=== PATIENT | female | born 1990 | race Caucasian/White ===

== ENCOUNTER 2018-02-07 14:11 | Outpatient (REF) | payer MEDICAID, SELFPAY ==
--- NOTE | 2018-02-07 14:00 | PAPFT_PTH ---
PATIENT: Huong Arriaga LOC: [facility] U#:[id number] AGE/SX: 27/F ROOM: RE02/07/[address]: BOBBY Le : 1990 BED: DIS: 02/07/2018 SPEC #: [id number] RECD: 02/07/18 17:45 STATUS: CHERELLE REQ #: [id number] LAUREN: 02/07/18 14:[address]: Yarely Paez DEPT: [facility] Cytology RECD BY: Rebeka Mac ENTERED: 02/07/18 17:46 SP TYPE: PAPFT OTHR DR: Luz Marina Hwang Tissues: 1 - CX/ENDOCX FOR PAP SMEARS Procedures: PAP THIN PREP/[facility] Screening Comments: [id number]
[2018-02-08 16:36] LABS: Chlamydia Result Negative; GC Result Negative; Specimen Description CERVIX
== END 2018-02-07 14:31 ==
LOC: LBN 14:11
PROVIDERS: PCP Nurse Practitioner Family; Visit Provider Nurse Practitioner Family
DX: Z11.3 Encounter for screening for infections with a predominantly sexual mode of transmission (principal); Z12.4 Encounter for screening for malignant neoplasm of cervix
CPT/HCPCS: 87491; 87591; 88142

== ENCOUNTER 2018-03-04 16:20 | Outpatient (REF) | payer MEDICAID, SELFPAY ==
--- NOTE | 2018-03-04 13:45 | CER_PTH ---
PATIENT: Huong Arriaga LOC: [facility] U#:[id number] AGE/SX: 27/F ROOM: RE03/04/[address]: BOBBY Le : 1990 BED: DIS: 03/04/2018 SPEC #: [id number] RECD: 03/04/18 17:35 STATUS: CHERELLE REQ #: [id number] LAUREN: 03/04/18 13:[address]: Yarely Paez DEPT: Surgical Specimen RECD BY: Rebeka Mac ENTERED: 03/04/18 17:36 SP TYPE: CER PATIENCE DR: Luz Marina Hwang Tissues: 1 - ENDOCERVICAL BX/CURRETTE 2 - CERVICAL BIOPSY Procedures: GROSS AND MICRO LEVEL 4 Comments: [id number]
== END 2018-03-04 16:40 ==
LOC: LBN 16:20
PROVIDERS: PCP Nurse Practitioner Family; Visit Provider Nurse Practitioner Family
DX: N72 Inflammatory disease of cervix uteri (principal); R87.610 Atypical squamous cells of undetermined significance on cytologic smear of cervix (ASC-US)
CPT/HCPCS: 88305

== ENCOUNTER 2018-08-04 16:42 | Emergency (ER) | payer MEDICAID, SELFPAY ==
[2018-08-04 16:54] VITALS: BP 110/57; PULSE 83; RESP 16; TEMP 36.7; O2SAT 98
--- NOTE | 2018-08-04 17:57 | NUR.NOTE ---
Nursing Note: Patient stated to Access that she was leaving without being seen. Stated she was going to get OTC meds for her problem. Cristina Marquez.
--- NOTE | 2018-08-04 18:27 | NUR.NOTE ---
left without being seen.Nursing Note:
== END 2018-08-04 17:54 ==
LOC: ER 16:55
PROVIDERS: PCP Nurse Practitioner Family
DX: Z53.21 Procedure and treatment not carried out due to patient leaving prior to being seen by health care provider (principal)

== ENCOUNTER 2018-08-06 12:19 | Emergency (ER) | payer MEDICAID, SELFPAY ==
[2018-08-06 12:21] VITALS: BP 113/50; PULSE 70; RESP 16; TEMP 36.6; O2SAT 100
--- NOTE | 2018-08-06 12:35 | ED.GENADUL_ITS ---
Discharge Plan Disposition Patient Disposition: HOME Condition: Improving Discharge Details Chief Complaint: RashLesion Clinical Impression: Acute urticaria Primary Care Provider: Toni Webster ED Provider: Tylor Boyce Home Meds and New Rx's Prescriptions: New prednisone 20 mg tablet 40 mg PO DAILY 5 Days Qty: 10 RF: 0 ranitidine HCl 150 mg capsule 150 mg PO BID Qty: 14 RF: 0 Continued Xulane 150-35 mcg/24 hr patch weekly 1 patch TD QWEEK Qty: 9 RF: 2 betamethasone dipropionate 0.05 % Cream 1 applic TOPICAL BID RF: 0 Discharge Instructions Instructions: Urticaria (ED) Additional Instructions: Take prednisone as prescribed for 5 days. I have enclosed a prescription for ranitidine which should take twice daily for 1 week, this is available [id number]. Continue all regular medications. Return for worsening rash, difficulty breathing, or any other acute concerns. Medical Decision Making 27-year-old female with diffuse, blanching, urticarial rash without signs of oth er systemic involvement. No clear inciting antigen. Most consistent with hives. Discussed with her treatment including brief burst of steroids and twice daily Zantac for a week. She understands homecare as well as follow-up and return precautions. She is stable for discharge to home at this time. HPI General Mode of arrival: ambulatory . Date/Time Provider Initiated Documentation: 08/06/18 12:28 . Limitations to Documentation: no limitations . Information obtained by: patient . History of Present Illness 27 year old F presents to the emergency department with the chief complaint of Itching rash for 3 days, described as moderate, Quality is described as constant, and is localized to the back, abdomen, upper extremity and lower extremity. Patient started experiencing this day(s) and it has been constant. No relieving factors improve symptom(s), No exacerbating factors reported . Patient notes no other symptoms.. Patient did receive the following treat ments prior to arrival, other (Some improvement with topical steroid cream) Related Data Home Medications Medication Instructions Recorded Confirmed norelgestromin 150 mcg-e.estradiol 1 patch TD QWEEK #9 each 05/10/18 35 mcg/24 hr weekly transderm patch betamethasone dipropionate 1 applic TOPICAL BID 08/06/18 08/06/18 prednisone 40 mg PO DAILY 5 Days #10 tab 08/06/18 ranitidine HCl 150 mg PO BID #14 cap 08/06/18 Previous Rx's Medication Instructions Recorded norelgestromin 150 mcg-e.estradiol 1 patch TD QWEEK #9 each 05/10/18 35 mcg/24 hr weekly transderm patch prednisone 40 mg PO DAILY 5 Days #10 tab 08/06/18 ranitidine HCl 150 mg PO BID #14 cap 08/06/18 Allergies Allergy/AdvReac Type Severity Reaction Status Date / Time phenytoin sodium Allergy Intermediate Hives Verified 08/06/18 12:26 [From Dilantin] phenytoin sodium extended Allergy Intermediate Hives Verified 08/06/18 12:26 [From Dilantin] General Stated Complaint: RashLesion EDEN: 4 Review of Systems Review of Systems 6 systems reviewed and otherwise negative [facility] Medical History Scoliosis (Acute) Surgical History Repair of inguinal hernia Family History Mother No problems noted. Social History Smoking/Tobacco Use Status: Current every day Tobacco Type: cigarettes Smoking cigarettes per day: 10 Alcohol Intake: never Substance use type: does not use Do you feel safe at home: Yes Do you feel safe in your relationship?: Yes History History 2 Para 1 Hx # Term Pregnancies Multiple births Hx # Pregnancies Ectopic pregnancies AB induced Hx Number of Living Children AB spontaneous Exam Narrative Exam Narrative: GEN: awake, alert, oriented 3. Pleasant, well groomed, interactive. HEAD: Normocephalic, atraumatic ENT: Mucous membranes moist, oropharynx unremarkable, External ear exam unremarkable EYES: PERRL, EOMI NECK: Full ROM, no EDGAR, no menigismus CHEST/RESP: Nontender, clear to auscultation bilateral, no wheeze/rhonchi/rales CARDIOVASCULAR: RRR, no murmur, rub ramona. 2+ Rad pulse bilateral ABDOMEN: Soft, nontender, no mass. Skin exam: Blanching, raised erythematous wheals on extremities and abdomen EXT: Full ROM, no edema Neuro: Grossly normal neurologic exam, conversant, interactive. Psych: Speech fluent, thoughts congruent, affect normal Course Vital Signs Temperature 36.6 C 08/06/18 12:21 Pulse 70 08/06/18 12:21 Respiratory Rate 16 08/06/18 12:21 Blood Pressure 113/50 L 08/06/18 12:21 Pulse Oximetry 100 08/06/18 12:21 Temperature 36.6 C 08/06/18 12:21 Temperature Source Skin 08/06/18 12:21 Pulse 70 08/06/18 12:21 Respiratory Rate 16 08/06/18 12:21 Respiratory Effort Non-Labored 08/06/18 12:24 Blood Pressure 113/50 L 08/06/18 12:21 Blood Pressure Position Sitting 08/06/18 12:21 Pulse Oximetry 100 08/06/18 12:21 Oxygen Delivery Method Room Air 08/06/18 12:21 Oxygen Flow Rate 0 08/06/18 12:21 Pain Level 0 08/06/18 12:21
[2018-08-06 12:40] VITALS: BP 113/50; PULSE 70; RESP 16; TEMP 36.6; O2SAT 100
== END 2018-08-06 12:40 | disposition home or self-care (01) ==
PROVIDERS: Emergency Provider Emergency Medicine; PCP Specialist/Technologist Athletic Trainer
DX: L50.9 Urticaria, unspecified (principal)
CPT/HCPCS: 99283

== ENCOUNTER 2018-09-25 07:52 | Emergency (ER) | payer MEDICAID, SELFPAY ==
[2018-09-25 07:55] VITALS: BP 100/60; PULSE 82; RESP 12; TEMP 36.7; O2SAT 98
--- NOTE | 2018-09-25 08:09 | W.ED.GENAD ---
Discharge Plan Disposition Patient Disposition: HOME Condition: Fair Discharge Details Chief Complaint: Sorethroat Clinical Impression: URI (upper respiratory infection), Acute pharyngitis Primary Care Provider: Toni Webster ED Provider: Rhina Kohler Home Meds and New Rx's Prescriptions: Continued betamethasone dipropionate 0.05 % Cream 1 applic TOPICAL BID RF: 0 Discharge Instructions Instructions: Pharyngitis (ED), Upper Respiratory Infection (ED) Additional Instructions: Encourage hydration. Tylenol and ibuprofen as needed for discomfort. You may use lozenges and honey to help with sore throat. If you develop fever/chills, increased pain, inability stay hydrated or other new/worsening symptoms please seek care urgently once again. Otherwise, please follow-up with primary care if not improved over the next week. Referrals: Toni Webster [Primary Care Provider] - Medical Decision Making Patient is a 28 year old female presenting today with cc of sore throat that began yesterday. Also endorses a mild nonproductive cough. Afebrile. No GI upset. No ear pain, nasal congestion. Patient nontoxic appearing. Has mild erythema to posterior oropharynx. Rapid strep negative. Uvula is midline. No swelling of the tongue, no trismus. Voice is normal. Advised is likely viral etiology. Encourage hydration. Advised Tylenol and ibuprofen as needed for discomfort. We discussed new/worsening symptoms that should prompt urgent evaluation once again. Advise follow-up with primary care if not improving in 1-2 week. All other questions and concerns were addressed she is in agreement with this plan. HPI General Mode of arrival: ambulatory. Date/Time Provider Initiated Documentation: 09/25/18 08:09. Limitations to Documentation: no limitations. Information obtained by: patient and RN notes reviewed. History of Present Illness 28 year old F presents to the emergency department with the chief complaint of sore throat, described as moderate, with intensity rated at 6. Quality is described as burning, Patient reports no radiation. Patient started experiencing this day(s) (1) and it has been constant. No relieving factors improve symptom(s), No exacerbating factors reported . Patient notes cough (nonproductive); denies chest pain, fever/chills, headaches, loss of appetite, nausea/vomiting, rash and shortness of breath. Patient did receive the following treatments prior to arrival, none Related Data Home Medications Medication Instructions Recorded Confirmed betamethasone dipropionate 1 applic TOPICAL BID 08/06/18 09/25/18 Allergies Allergy/AdvReac Type Severity Reaction Status Date / Time phenytoin sodium Allergy Intermediate Hives Verified 09/25/18 07:58 [From Dilantin] phenytoin sodium extended Allergy Intermediate Hives Verified 09/25/18 07:58 [From Dilantin] General Stated Complaint: Sorethroat EDEN: 4 Review of Systems Constitutional Reports as per HPI, Denies chills, Denies fever(s), Denies headache(s) and Denies poor appetite Eyes Reports as per HPI, Denies eye discharge and Denies irritation ENT Reports as per HPI, Denies ear discharge, Denies otalgia, Denies headache(s), Denies nasal congestion, Denies nasal discharge, Denies sinus pain, Denies sinus pressure, Reports sore throat and Denies throat swelling Cardiovascular Reports as per HPI, Denies chest pain and Denies dyspnea Respiratory Reports as per HPI, Denies chest congestion, Reports cough, Denies hemoptysis, Denies excessive phlegm production and Denies dyspnea Gastrointestinal Reports as per HPI, Denies abdominal pain, Denies change in bowel habits, Denies nausea and Denies vomiting Integumentary/Breasts Reports as per HPI and Denies rash Neurologic Reports as per HPI and Denies headache(s) Allergic/Immunologic Denies throat swelling [facility] Medical History Scoliosis (Acute) Surgical History Repair of inguinal hernia Social History Smoking/Tobacco Use Status: Current every day Tobacco Type: cigarettes Alcohol Intake: never Substance use type: does not use Do you feel safe at home: Yes Do you feel safe in your relationship?: Yes History History 2 Para 1 Hx # Term Pregnancies Multiple births Hx # Pregnancies Ectopic pregnancies AB induced Hx Number of Living Children AB spontaneous Exam Const General: cooperative, healthy appearing, comfortable, no acute distress, well developed and well groomed Nutritional Appearance: average body habitus and well nourished Orientation: alert and awake HENFL Head: normal to inspection, normocephalic and atraumatic Ears: hearing grossly normal bilaterally, external ears normal and TM's normal bilaterally General nose exam: external nose normal and nares normal Face and sinus: normal facial exam, sinuses nontender and face symmetric Mouth: oral mucosae normal, lip normal, tongue normal, oropharynx normal and moist mucous membranes Teeth and gingiva: dentition normal Throat: posterior oropharynx abnormal (erythematous), tonsils normal and uvula midline Eyes General: appearance normal, both eyes and all related structures Neck Neck: normal visual inspection, full ROM, no lymphadenopathy and no meningeal signs Resp Effort & Inspection: normal respiratory effort, able to speak in complete sentences and no respiratory distress Auscultation: clear to auscultation bilaterally, no rales, no rhonchi and no wheezes Cardio Rate: regular rate Rhythm: regular rhythm Heart Sounds: S1 normal and S2 normal Skin General skin exam: no rashes or lesions noted Neuro General: alert and awake Cognition: normal cognition Speech: speech normal Gait: normal gait Psych Appearance: grossly normal and well kempt Mental Status: mental status grossly normal Speech and Movement: speech and movement normal Course Vital Signs Temperature 36.7 C 09/25/18 07:55 Pulse 82 09/25/18 07:55 Respiratory Rate 12 09/25/18 07:55 Blood Pressure 100/60 09/25/18 07:55 Pulse Oximetry 98 09/25/18 07:55 Temperature 36.7 C 09/25/18 07:55 Temperature Source Temporal Artery Scan 09/25/18 07:55 Pulse 82 09/25/18 07:55 Respiratory Rate 12 09/25/18 07:55 Respiratory Effort Non-Labored 09/25/18 07:57 Blood Pressure 100/60 09/25/18 07:55 Blood Pressure Position Sitting 09/25/18 07:55 Pulse Oximetry 98 09/25/18 07:55 Oxygen Delivery Method Room Air 09/25/18 07:55 Oxygen Flow Rate 0 09/25/18 07:55 Pain Level 6 09/25/18 07:55 Lab/Test Results Lab/Test Results: POC Strep Test-MELISSA(Rapid) Start: 09/25/18 08:04 Freq: .Rapid Strep Test Status: Active Protocol: Document 09/25/18 08:09 SRIKANTH (Rec: 09/25/18 08:09 SRIKANTH [email or web address]) Strep test-MELISSA(Rapid)-POC POC-Strep test-MELISSA (Rapid) Negative POC-Strep test-MELISSA (Rapid) Negative
--- NOTE | 2018-09-25 08:18 | ED.GENADUL_ITS ---
Discharge Plan Disposition Patient Disposition: HOME Condition: Fair Discharge Details Chief Complaint: Sorethroat Clinical Impression: URI (upper respiratory infection), Acute pharyngitis Primary Care Provider: Toni Webster ED Provider: Rhina Kohler Home Meds and New Rx's Prescriptions: Continued betamethasone dipropionate 0.05 % Cream 1 applic TOPICAL BID RF: 0 Discharge Instructions Instructions: Pharyngitis (ED), Upper Respiratory Infection (ED) Additional Instructions: Encourage hydration. Tylenol and ibuprofen as needed for discomfort. You may use lozenges and honey to help with sore throat. If you develop fever/chills, increased pain, inability stay hydrated or other new/worsening symptoms please seek care urgently once again. Otherwise, please follow-up with primary care if not improved over the next week. Referrals: Toni Webster [Primary Care Provider] - Medical Decision Making Patient is a 28 year old female presenting today with cc of sore throat that began yesterday. Also endorses a mild nonproductive cough. Afebrile. No GI upset. No ear pain, nasal congestion. Patient nontoxic appearing. Has mild erythema to posterior oropharynx. Rapid strep negative. Uvula is midline. No swelling of the tongue, no trismus. Voice is normal. Advised is likely viral etiology. Encourage hydration. Advised Tylenol and ibuprofen as needed for discomfort. We discussed new/worsening symptoms that should prompt urgent evaluation once again. Advise follow-up with primary care if not improving in 1-2 week. All other questions and concerns were addressed she is in agreement with this plan. HPI General Mode of arrival: ambulatory . Date/Time Provider Initiated Documentation: 09/25/18 08:09 . Limitations to Documentation: no limitations . Information obtained by: patient and RN notes reviewed . History of Present Illness 28 year old F presents to the emergency department with the chief complaint of sore throat, described as moderate, with intensity rated at 6. Quality is described as burning, Patient reports no radiation. Patient started experiencing this day(s) (1) and it has been constant. No relieving factors improve symptom(s), No exacerbating factors reported . Patient notes cough (nonproductive); denies chest pain, fever/chills, headaches, loss of appetite, nausea/vomiting, rash and shortness of breath. Patient did receive the following treatments prior to arrival, none Related Data Home Medications Medication Instructions Recorded Confirmed betamethasone dipropionate 1 applic TOPICAL BID 08/06/18 09/25/18 Allergies Allergy/AdvReac Type Severity Reaction Status Date / Time phenytoin sodium Allergy Intermediate Hives Verified 09/25/18 07:58 [From Dilantin] phenytoin sodium extended Allergy Intermediate Hives Verified 09/25/18 07:58 [From Dilantin] General Stated Complaint: Sorethroat EDEN: 4 Review of Systems Constitutional Reports as per HPI, Denies chills, Denies fever(s), Denies headache(s) and Denies poor appetite Eyes Reports as per HPI, Denies eye discharge and Denies irritation ENT Reports as per HPI, Denies ear discharge, Denies otalgia, Denies headache(s), Denies nasal congestion, Denies nasal discharge, Denies sinus pain, Denies sinus pressure, Reports sore throat and Denies throat swelling Cardiovascular Reports as per HPI, Denies chest pain and Denies dyspnea Respiratory Reports as per HPI, Denies chest congestion, Reports cough, Denies hemoptysis, Denies excessive phlegm production and Denies dyspnea Gastrointestinal Reports as per HPI, Denies abdominal pain, Denies change in bowel habits, Denies nausea and Denies vomiting Integumentary/Breasts Reports as per HPI and Denies rash Neurologic Reports as per HPI and Denies headache(s) Allergic/Immunologic Denies throat swelling [facility] Medical History Scoliosis (Acute) Surgical History Repair of inguinal hernia Social History Smoking/Tobacco Use Status: Current every day Tobacco Type: cigarettes Alcohol Intake: never Substance use type: does not use Do you feel safe at home: Yes Do you feel safe in your relationship?: Yes History History 2 Para 1 Hx # Term Pregnancies Multiple births Hx # Pregnancies Ectopic pregnancies AB induced Hx Number of Living Children AB spontaneous Exam Const General: cooperative, healthy appearing, comfortable, no acute distress, well developed and well groomed Nutritional Appearance: average body habitus and well nourished Orientation: alert and awake HENCO Head: normal to inspection, normocephalic and atraumatic Ears: hearing grossly normal bilaterally, external ears normal and TM's normal bilaterally General nose exam: external nose normal and nares normal Face and sinus: normal facial exam, sinuses nontender and face symmetric Mouth: oral mucosae normal, lip normal, tongue normal, oropharynx normal and moist mucous membranes Teeth and gingiva: dentition normal Throat: posterior oropharynx abnormal (erythematous), tonsils normal and uvula midline Eyes General: appearance normal, both eyes and all related structures Neck Neck: normal visual inspection, full ROM, no lymphadenopathy and no meningeal signs Resp Effort & Inspection: normal respiratory effort, able to speak in complete sentences and no respiratory distress Auscultation: clear to auscultation bilaterally, no rales, no rhonchi and no wheezes Cardio Rate: regular rate Rhythm: regular rhythm Heart Sounds: S1 normal and S2 normal Skin General skin exam: no rashes or lesions noted Neuro General: alert and awake Cognition: normal cognition Speech: speech normal Gait: normal gait Psych Appearance: grossly normal and well kempt Mental Status: mental status grossly normal Speech and Movement: speech and movement normal Course Vital Signs Temperature 36.7 C 09/25/18 07:55 Pulse 82 09/25/18 07:55 Respiratory Rate 12 09/25/18 07:55 Blood Pressure 100/60 09/25/18 07:55 Pulse Oximetry 98 09/25/18 07:55 Temperature 36.7 C 09/25/18 07:55 Temperature Source Temporal Artery Scan 09/25/18 07:55 Pulse 82 09/25/18 07:55 Respiratory Rate 12 09/25/18 07:55 Respiratory Effort Non-Labored 09/25/18 07:57 Blood Pressure 100/60 09/25/18 07:55 Blood Pressure Position Sitting 09/25/18 07:55 Pulse Oximetry 98 09/25/18 07:55 Oxygen Delivery Method Room Air 09/25/18 07:55 Oxygen Flow Rate 0 09/25/18 07:55 Pain Level 6 09/25/18 07:55 Lab/Test Results Lab/Test Results: POC Strep Test-MELISSA(Rapid) Start: 09/25/18 08:04 Freq: .Rapid Strep Test Status: Active Protocol: Document 09/25/18 08:09 SRIKANTH (Rec: 09/25/18 08:09 SRIKANTH [email or web address]) Strep test-MELISSA(Rapid)-POC POC-Strep test-MELISSA (Rapid) Negative POC-Strep test-MELISSA (Rapid) Negative
== END 2018-09-25 08:22 | disposition home or self-care (01) ==
PROVIDERS: Emergency Provider Physician Assistant; PCP Specialist/Technologist Athletic Trainer
DX: J06.9 Acute upper respiratory infection, unspecified (principal); J02.9 Acute pharyngitis, unspecified
CPT/HCPCS: 87880; 99283; 87081

== ENCOUNTER 2018-11-08 11:55 | Outpatient (REF) | payer MEDICAID, SELFPAY ==
--- NOTE | 2018-11-08 12:45 | SKI_PTH ---
PATIENT: Huong Arriaga LOC: [facility] U#:[id number] AGE/SX: 28/F ROOM: RE11/08/[address]: Toni Webster : 1990 BED: DIS: 11/08/2018 SPEC #: [id number] RECD: 11/11/18 12:40 STATUS: CHERELLE RERitchie #: [id number] LAUREN: 11/08/18 12:[address]: Toni Webster DEPT: Surgical Specimen RECD BY: Rebeka Mac Tissues: 1 - SKIN BIOPSY(SHAVE/PUNCH) Procedures: SKIN LEVEL 4 Comments: [id number]
== END 2018-11-08 12:15 ==
LOC: NCHCN 11:55
PROVIDERS: PCP Specialist/Technologist Athletic Trainer; Visit Provider Specialist/Technologist Athletic Trainer
DX: L30.8 Other specified dermatitis (principal); R21 Rash and other nonspecific skin eruption
CPT/HCPCS: 88305

== ENCOUNTER 2019-05-06 14:52 | Outpatient (REF) | payer MEDICAID, SELFPAY ==
--- NOTE | 2019-05-06 14:00 | PAPFT_PTH ---
PATIENT: Huong Arriaga LOC: [facility] U#:[id number] AGE/SX: 28/F ROOM: RE05/06/[address]: BOBBY Le : 1990 BED: DIS: 05/06/2019 SPEC #: [id number] RECD: 05/06/19 17:46 STATUS: CHERELLE RERitchie #: [id number] LAUREN: 05/06/19 14:[address]: Yarely Paez DEPT: [facility] Cytology RECD BY: Rebeka Mac ENTERED: 05/06/19 17:46 SP TYPE: PAPFT OTHR DR: Toni Webster Tissues: 1 - CX/ENDOCX FOR PAP SMEARS Procedures: PAP THIN PREP/[facility] Screening HPV DNA PROBE Comments: [id number]
[2019-05-07 13:37] LABS: Chlamydia Result Negative (Negative); GC Result Negative (Negative)
== END 2019-05-06 15:12 ==
LOC: LBN 14:52
PROVIDERS: PCP Specialist/Technologist Athletic Trainer; Visit Provider Nurse Practitioner Family
DX: Z11.3 Encounter for screening for infections with a predominantly sexual mode of transmission (principal); Z12.4 Encounter for screening for malignant neoplasm of cervix
CPT/HCPCS: 87491; 87591; 88142; 87624

== ENCOUNTER 2019-08-08 18:07 | Emergency (ER) | payer MEDICAID, SELFPAY ==
--- NOTE | 2019-08-08 18:00 | DI.RAD_ITS ---
EXAM: XR FOOT RT COMPLETE CLINICAL HISTORY: stepped on nail, r/o FB. TECHNIQUE: 2D digital imaging was performed. COMPARISON: No exams were available for comparison FINDINGS: BONES: No acute fracture is present. No bony destructive lesion is seen. JOINTS: No dislocation present. SOFT TISSUE: Normal. No radiopaque foreign body is identified. IMPRESSION: Unremarkable radiographs of the right foot. DATA REPOSITORY: RADIATION DOSE DELIVERED:
[2019-08-08 18:13] VITALS: BP 119/76; PULSE 97; RESP 18; TEMP 37.5; O2SAT 97
--- NOTE | 2019-08-08 18:34 | W.ED.GENAD ---
Discharge Plan Disposition Patient Disposition: HOME Condition: Good Discharge Details Chief Complaint: Orthopedic Clinical Impression: Injury by nail Primary Care Provider: Toni Webster ED Provider: Troy Lewis Home Meds and New Rx's Prescriptions: New ciprofloxacin HCl 500 mg tablet 500 mg PO BID 7 Days Qty: 14 RF: 0 Discharge Instructions Instructions: Puncture Wound (ED) Additional Instructions: At this time there does not appear to be any evidence of foreign body in your foot. Please apply antibiotic ointment to your foot twice daily. Please stay off of it to let it heal. Please take the antibiotic Cipro as directed. Of note this antibiotic can cause irritation to your tendons. If you feel any pain in your joints or your Achilles tendon please stop taking the antibiotic and avoid any vigorous activity. If you notice any worsening of your symptoms, or any new symptoms such as spreading redness, drainage, discharge vomiting, diarrhea, fever, chills, shortness of breath, chest pain, numbness, weakness, or fainting , please return immediately to the emergency department for reevaluation. Please follow up with your primary care provider as soon as possible for reassessment and reevaluation. As always, it was a pleasure participating in your medical care today. Referrals: Toni Webster [Primary Care Provider] - Medical Decision Making This is a pleasant 28-year-old female who presents today for evaluation after stepping on a nail in a fire pit. It went through her shoe sock and into her foot. Small amount of bleeding. Exam demonstrates no evidence of abnormality aside for the small puncture wound. Area was soaked, cleaned thoroughly and chlorhexidine. X-ray shows no evidence of foreign body. At this time I feel that the patient be safely discharged home. We have updated tetanus status. Because it went through her shoe sock and was from a dirty fire pit we will start her on an antibiotic Cipro. Discussed red flags which to return. Will give crutches and a postop shoe to help. I have extensively reviewed the treatment plan and discharge instructions with the patient. I have addressed all patient concerns at this time. The patient was made aware of what symptoms to monitor for that would warrant a return to the emergency department. Discussed the plan with the patient, they demonstrate verbal understanding and agreement with our assessment and plan at this time. FINDINGS: Bones/joints: Bone density is appropriate. Bony alignment is anatomic without evidence for fracture or dislocation. Soft tissues: No radiopaque foreign body is identified. IMPRESSION: No evidence for acute abnormality. COMMENTS: Preliminary interpretation is based on receipt of 4 image(s). A final report will be issued subsequently. Thank you for allowing us to participate in the care of your patient. Dictated and Authenticated by: Paige Jones MD 08/08/2019 6:40 PM Eastern Time ([place] & [place]) HPI General Date/Time Provider Initiated Documentation: 08/08/19 18:12. HPI Narrative: 28-year-old female with no significant past medical history who presents today for evaluation after stepping on a nail. Uncertain as to when her last tetanus shot was. She was walking through a fire pit when she stepped on a nail that went through her shoe, sock, and into her foot. Small amount of bleeding. Signs are pain at the site she denies any other complaints. No other modifying factors. Related Data Home Medications Medication Instructions Recorded Confirmed ciprofloxacin HCl 500 mg PO BID 7 Days #14 tab 08/08/19 Previous Rx's Medication Instructions Recorded ciprofloxacin HCl 500 mg PO BID 7 Days #14 tab 08/08/19 Allergies Allergy/AdvReac Type Severity Reaction Status Date / Time phenytoin sodium Allergy Intermediate Hives Verified 05/06/19 13:50 [From Dilantin] phenytoin sodium extended Allergy Intermediate Hives Verified 05/06/19 13:50 [From Dilantin] General Stated Complaint: Orthopedic EDEN: 3 Review of Systems All systems reviewed & are unremarkable except as noted in HPI and below PFSH Family History (Updated 05/06/19 @ 14:26 by Yarely Paez NP) Mother Hypertension Social History Smoking/Tobacco Use Status: Current every day Tobacco Type: cigarettes Quit status: considering quitting Alcohol Intake: never Substance use type: does not use Do you feel safe at home: Yes Do you feel safe in your relationship?: Yes Female Reproductive History Menstrual control method: condoms History History 2 Para 1 Hx # Term Pregnancies Multiple births Hx # Pregnancies Ectopic pregnancies AB induced Hx Number of Living Children AB spontaneous Exam Narrative Exam Narrative: 1.Const: Well-nourished, Well-developed, appearing stated age 2.Eyes: PERRL, no conjunctival injection, and symmetrical lids. 3.ENT: Atraumatic external nose and ears. Moist MM. Neck: Symmetric, trachea midline, No thyromegaly. 4.CVS: +S1/S2, No murmurs or gallops. Peripheral pulses 2+ and equal in all extremities. Brisk capillary refill in all extremities. 5.RESP: Unlabored respiratory effort. Clear to auscultation bilaterally. No wheezes rales or rhonchi 6.GI: Soft, Nontender/Nondistended, No hepatosplenomegaly. No guarding or rebound. 7.MSK: Normocephalic, Extremities w/o deformity or ttp No cyanosis or clubbing, Normal movement of all extremities, please see skin 8.Skin: Warm, Dry. No rashes or lesions. The patient's right foot demonstrates evidence of a small puncture wound in the plantar aspect of the foot, near the center. No active bleeding. No evidence of foreign body. No other abnormality. Mild pain with palpation. 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 Sensation grossly intact, no focal neurologic deficits. 10.Psych: (AAO) x3. Appropriate mood and affect Course Vital Signs Vital signs: Vital Signs Temperature 37.5 C 08/08/19 18:13 Pulse 97 H 08/08/19 18:13 Respiratory Rate 18 08/08/19 18:13 Blood Pressure 119/76 08/08/19 18:13 Pulse Oximetry 97 08/08/19 18:13 Temperature 37.5 C 08/08/19 18:13 Temperature Source Temporal Artery Scan 08/08/19 18:13 Pulse 97 H 08/08/19 18:13 Respiratory Rate 18 08/08/19 18:13 Respiratory Effort Non-Labored 08/08/19 18:17 Blood Pressure 119/76 08/08/19 18:13 Blood Pressure Position Sitting 08/08/19 18:13 Pulse Oximetry 97 08/08/19 18:13 Oxygen Delivery Method Room Air 08/08/19 18:13 Oxygen Flow Rate 0 08/08/19 18:13 Pain Level 8 08/08/19 18:13
--- NOTE | 2019-08-08 18:40 | DI.VRAD_ITS ---
PROCEDURE INFORMATION: Exam: XR Right Foot Complete Exam date and time: 08/08/2019 6:27 PM Age: 28 years old Clinical indication: Injury or trauma; Initial encounter; Puncture; Foot; Right; Foreign body involvement not specified; Patient HX: PT stepped on nail; Additional info: R/O fb TECHNIQUE: Imaging protocol: XR Right foot. Views: 3 or more views. COMPARISON: No relevant prior studies available. FINDINGS: Bones/joints: Bone density is appropriate. Bony alignment is anatomic without evidence for fracture or dislocation. Soft tissues: No radiopaque foreign body is identified. IMPRESSION: No evidence for acute abnormality. COMMENTS: Preliminary interpretation is based on receipt of 4 image(s). A final report will be issued subsequently. Dictated and Authenticated by: Paige Jones MD. Ordering:BARRON Simmons MD
[2019-08-08 18:50] VITALS: BP 119/76; PULSE 97; RESP 18; O2SAT 97
== END 2019-08-08 19:10 | disposition home or self-care (01) ==
PROVIDERS: Emergency Provider Student in an Organized Health Care Education/Training Program; PCP Nurse Practitioner Family
DX: S91.331A Puncture wound without foreign body, right foot, initial encounter (principal); W45.0XXA Nail entering through skin, initial encounter
CPT/HCPCS: 90471; 99284; 73630; 99283; E0114

== ENCOUNTER 2019-11-13 02:28 | Outpatient (CLI) | payer MEDICAID, SELFPAY ==
[2019-11-13 11:10] LABS: Abs Immature Grans 0.02 10^3/uL (0.0-0.06); Absolute Basophil Count 0.04 10^3/uL (0.0-0.2); Absolute Lymphocyte Count 2.41 10^3/uL (1.2-3.4); Absolute Monocyte Count 0.58 10^3/uL (0.1-0.8); Absolute Neutrophil Count 4.04 10^3/uL (1.2-6.7); Basophils % 0.5; Eosinophils % 2.7; HCT 40.6 % (36.0-46.0); HGB 13.5 g/dL (11.2-15.7); Immature Grans % 0.3; Lymphocytes % 33.1; MCH 31.5 pg (27.0-33.0); MCHC 33.3 % (32.0-36.0); MCV 94.6 fL (80-95); MPV 9.5 fL (8.0-11.0); Neutrophils % 55.4; Platelet Count 247 10^3/uL (130-400); RBC 4.29 10^6/uL (3.93-5.22); RDW 12.6 % (11.7-14.6); RDW-SD 43.4 fL; WBC 7.29 10^3/uL (4.4-10.8)
== END 2019-11-13 02:48 ==
PROVIDERS: PCP Nurse Practitioner Family; Visit Provider Obstetrics & Gynecology
DX: Z01.818 Encounter for other preprocedural examination (principal)
CPT/HCPCS: 36415; 86850; 86900; 86901; 85025

== ENCOUNTER 2019-11-15 07:04 | Outpatient (CLI) | payer MEDICAID, SELFPAY ==
[2019-11-16 17:28] LABS: COVID-19 RT-PCR Result NEGATIVE (Negative)
== END 2019-11-15 07:24 ==
PROVIDERS: PCP Nurse Practitioner Family; Visit Provider Obstetrics & Gynecology
DX: Z01.818 Encounter for other preprocedural examination (principal)
CPT/HCPCS: U0003

== ENCOUNTER 2019-11-19 06:07 | Day surgery (SDC) | payer MEDICAID, SELFPAY ==
[2019-11-19 06:10] VITALS: BP 109/66; PULSE 66; RESP 18; TEMP 36.5; O2SAT 96
[2019-11-19] MEDS: Lactated Ringers 1,000 ML 125 ML IV (06:37)
[2019-11-19] MEDS: Acetaminophen 500 MG TAB 1000 MG PO (06:44)
--- NOTE | 2019-11-19 08:00 | FALL_PTH ---
PATIENT: Huong Arriaga LOC: [facility] U#:[id number] AGE/SX: 29/F ROOM: RE11/19/[address]: Eliz Diaz DO : 1990 BED: DIS: 11/19/2019 SPEC #: [id number] RECD: 11/19/19 12:48 STATUS: CHERELLE REQ #: [id number] LAUREN: 11/19/19 08:[address]: Eliz Diaz DEPT: Surgical Specimen RECD BY: Rebeka Mac ENTERED: 11/19/19 12:48 SP TYPE: Fall OTHR DR: Nicolle Herring Tissues: 1 - FALLOPIAN TUBE (STERILIZATION) Procedures: GROSS AND MICRO LEVEL 2 Comments: [id number] (SAME CONTAINER)
--- NOTE | 2019-11-19 08:22 | ROE_ITS ---
Date of service: 11/19/19 Time of Service: 08:22 Operative Note Operative Note DATE OF PROCEDURE: 11/19/19 PRE-OP DIAGNOSIS: undesired fertility POST-OP DIAGNOSIS: same PROCEDURE: Laparoscopic bilateral salpingectomy SURGEON: Eliz Diaz ANESTHESIA: JENNI ESTIMATED BLOOD LOSS: 5 PATHOLOGY: other COMPLICATIONS: None Patient was transported to: PACU Patient's condition: stable Implants: None Indications: Undesired fertility Findings: Normal-appearing tubes, ovaries, uterus Procedure Description: Patient is a 29-year-old female with undesired fertility. She requested permanent sterilization. The risks, benefits, alternatives of the procedure including alternate forms of control were all explained to the patient. She understand the risk of infection, bleeding, injury to the surrounding organs, risk of anesthesia, thromboembolic events and . Full informed consent was obtained. She was taken the operating suite with an IV running where she was placed in the dorsal supine position. She had had approximately 100 cc of clear yellow urine drained by straight catheterization. General anesthesia administered after endotracheal intubation was performed. Timeout was performed. Patient had been prepped and draped in the usual sterile fashion. At this point quarter percent Marcaine with epinephrine was used to infiltrate at the umbilicus. The intra-abdominal wall was elevated and attempted varies needle placed. Could not confirm appropriate placement for pneumoperitoneum and this point the fascia was grasped with [place] clamps and incised. The blade this a millimeter sleeve and trocar were placed into the abdomen under direct visualization and pneumoperitoneum created. At this point attention was again turned to the abdomen where quarter percent Marcaine was used to infiltrate at the right and left lower quadrant trocar sites and a 5 mm incision made and under direct visualization right and left lower quadrant trocar sites placed with ease. At this point the left fallopian tube was identified elevated and cautery transected with the LigaSure device. The fallopian tube was then removed through the 10 mm port. Similar procedure was carried out on the right fallopian tube with LigaSure device for cautery and transection. The right fallopian tube was then elevated through the 10 mm sleeve and trocar. The pedicles were at this point inspected and found to be completely hemostatic. At this point the procedure was terminated. Pneumoperitoneum was released fascial incision was closed using 0 Vicryl suture in a running in a simple interrupted fashion umbilical incision was reap proximated with a single stitch of 4-0 Vicryl and right and left lower quadrant trocar sites were closed with a Steri-Strip. Patient awoke from anesthesia was and was taken recovery room in stable condition findings were normal tubes ovaries and uterus Complications: None apparent Implants: None
[2019-11-19 08:25] VITALS: BP 111/82; PULSE 82; RESP 16; TEMP 36.5; O2SAT 99
[2019-11-19 08:30] VITALS: BP 125/65; PULSE 78; RESP 14; TEMP 36.5; O2SAT 98
[2019-11-19 08:35] VITALS: BP 125/65; PULSE 78; RESP 14; TEMP 36.5; O2SAT 98
[2019-11-19 08:50] VITALS: BP 98/60; PULSE 69; RESP 16; TEMP 36.7; O2SAT 99
[2019-11-19 09:40] VITALS: BP 95/53; PULSE 55; RESP 16; TEMP 36.1; O2SAT 100
== END 2019-11-19 10:24 | disposition home or self-care (01) ==
LOC: SUR 06:08
PROVIDERS: PCP Nurse Practitioner Family; Visit Provider Obstetrics & Gynecology
PROC: (CPT 58661; principal; 2019-11-19 07:30)
DX: Z30.2 Encounter for sterilization (principal)
CPT/HCPCS: 58661; 81025; 88302; J1100; J1885; J2001; J2405; J3475

== ENCOUNTER 2020-02-05 16:40 | Emergency (ER) | payer MEDICAID, SELFPAY ==
[2020-02-05 16:44] VITALS: BP 114/68; PULSE 83; RESP 16; TEMP 36.6; O2SAT 100
--- NOTE | 2020-02-05 17:05 | ED.GENADUL_ITS ---
Discharge Plan Disposition Patient Disposition: HOME Condition: Stable Discharge Details Clinical Impression: Dental infection Primary Care Provider: Nicolle Herring ED Provider: Noah Wolfe Home Meds and New Rx's Prescriptions: New clindamycin HCl 300 mg capsule 300 mg PO Q8H 10 Days Qty: 30 RF: 0 Continued Vicks DayQuil Cold-Flu Relief 5-10-325 mg capsule 1 cap PO DAILY PRNRF: 0 ibuprofen [IBU] 800 mg tablet 800 mg PO Q8H PRN (Reason: pain) Qty: 30 RF: 0 Discharge Instructions Instructions: Toothache (ED) Additional Instructions: I would like you to discontinue taking the amoxicillin, add on the clindamycin as directed. Continue [id number] Tylenol and/or Motrin as directed for discomfort. Salt water gargles, swish and spit as tolerated. Cool and/or warm compresses every 2 hours for 20 minutes. Please watch for new or worsening symptoms and return to the ER for any concerns. Otherwise I recommend contacting your dentist tomorrow and discussing reevaluation in the next several days. Discharge Data Discharge Date/Time-TO BE ENTERED AT DEPARTURE: 02/05/20 17:30 Medical Decision Making 29-year-old female, smoker, presents with nearly 1 week history of dental disco mfort. She was seen by her dentist, given amoxicillin, has been using [id number] Orajel, Tylenol, Motrin but not getting any true improvement. She appears well, nontoxic. She is afebrile. No pointing abscess. She does have mild localized discomfort and swelling. She does not have an appointment to see her dentist for follow-up. We discussed options. Her primary concern is that of trying a stronger antibiotic because she feels as though the amoxicillin is not helping. Given she has been on the amoxicillin for 4 days without improvement I do believe changing antibiotics is reasonable. We discussed analgesia, she declines a infraorbital nerve block. Patient will discontinue amoxicillin and we will add on clindamycin. Recommend that she continues cool and/or warm compresses, Tylenol, Motrin, Orajel, and salt water swish and spit. I also recommend that she contact her dentist tomorrow to make an appointment for next week for proper follow-up. Otherwise she will return to the ER for new or worsening symptoms. Patient is comfortable with this plan and has no additional questions or concerns. Medical Records Medical records reviewed: Yes I reviewed the patient's medical records. HPI General Mode of arrival: ambulatory . Date/Time Provider Initiated Documentation: 02/05/20 16:46 . Limitations to Documentation: no limitations . Information obtained by: patient . HPI Narrative: This is a 29-year-old female, denies significant past medical history, she is a current smoker. She reports dental pain that is been present for approximately 1 week. Saw her dentist on Sunday, placed on amoxicillin, ibuprofen, Tylenol, Orajel with little relief. She did have a single dental film done that day. She reports mild local swelling. Pain does radiate to the right ear. Pain was moderate but now is worse, especially when eating. She denies fever, sore throat, ear discharge, neck pain. Related Data Home Medications Medication Instructions Recorded Confirmed phenylephrine 5 1 cap PO DAILY PRN cap 11/13/19 02/05/20 mg-dextromethorphan 10 mg-acetaminophen 325 mg capsule ibuprofen [IBU] 800 mg PO Q8H PRN #30 tab 11/19/19 02/05/20 clindamycin HCl 300 mg PO Q8H 10 Days #30 cap 02/05/20 Previous Rx's Medication Instructions Recorded ibuprofen [IBU] 800 mg PO Q8H PRN #30 tab 11/19/19 clindamycin HCl 300 mg PO Q8H 10 Days #30 cap 02/05/20 Allergies Allergy/AdvReac Type Severity Reaction Status Date / Time phenytoin sodium Allergy Intermediate Hives Verified 02/05/20 16:47 [From Dilantin] phenytoin sodium extended Allergy Intermediate Hives Verified 02/05/20 16:47 [From Dilantin] venom-honey bee Allergy Hives Verified 02/05/20 16:47 General Stated Complaint: DentalOral EDEN: 4 Review of Systems Constitutional Constitutional: Denies fever(s) and Denies headache(s) ENT Ears, Nose, Mouth, and Throat: Denies ear discharge, Reports otalgia, Reports facial pain, Denies headache(s) and Denies sore throat Cardiovascular Cardiovascular: Reports chest pain Respiratory Respiratory: Denies cough Integumentary/Breasts Skin/Breast: Denies erythema Neurologic Neurologic: Denies headache(s) [facility] Medical History History of epilepsy Pt. states she had this when she was a child, and no longer requires to be seen by Scoliosis Unwanted fertility Surgical History Repair of inguinal hernia age 3 yrs Family History Mother Hypertension Social History Smoking/Tobacco Use Status: Current every day Tobacco Type: cigarettes Quit status: considering quitting Alcohol Intake: current Alcohol Intake frequency: a few times a month Alcohol type: beer Substance use type: does not use Do you feel safe at home: Yes Do you feel safe in your relationship?: Yes Female Reproductive History Menstrual control method: condoms History History 2 Para 1 Hx # Term Pregnancies Multiple births Hx # Pregnancies Ectopic pregnancies AB induced Hx Number of Living Children AB spontaneous Exam Const General: cooperative, healthy appearing, comfortable and no acute distress Orientation: alert and awake HENMT Head: normal to inspection, normocephalic and atraumatic Ears: external ears normal, TM's normal bilaterally and EAC's normal General nose exam: external nose normal Face images: 1. Minimal swelling and discomfort to palpation. There is no erythema, warmth, induration or fluctuance. Skin is intact. Mouth: oral mucosae normal and moist mucous membranes Teeth image: 1. Tenderness to palpation. Gingiva is unremarkable. There is no swelling, erythema, pointing abscess, induration or fluctuance. Throat: posterior oropharynx normal Eyes Eyelids: eyelids normal Conjunctivae: conjunctivae normal Neck Neck: normal visual inspection, full ROM, no lymphadenopathy, trachea midline, supple and nontender Resp Effort & Inspection: normal respiratory effort and able to speak in complete sentences Auscultation: clear to auscultation bilaterally Cardio Rate: regular rate Rhythm: regular rhythm Skin General skin exam: no rashes or lesions noted Neuro General: patient alert, patient awake, moves all extremities and no focal motor deficits Cognition: normal cognition Speech: speech normal Sensory Exam: no sensory deficits noted Psych Appearance: grossly normal Mental Status: mental status grossly normal Course Vital Signs Vital signs: Vital Signs Temperature 36.6 C 02/05/20 16:44 Pulse 83 02/05/20 16:44 Respiratory Rate 16 02/05/20 16:44 Blood Pressure 114/68 02/05/20 16:44 Pulse Oximetry 100 02/05/20 16:44 Temperature 36.6 C 02/05/20 16:44 Temperature Source Skin 02/05/20 16:44 Pulse 83 02/05/20 16:44 Respiratory Rate 16 02/05/20 16:44 Respiratory Effort Non-Labored 02/05/20 16:44 Blood Pressure 114/68 02/05/20 16:44 Blood Pressure Position Sitting 02/05/20 16:44 Pulse Oximetry 100 02/05/20 16:44 Oxygen Delivery Method Room Air 02/05/20 16:44 Oxygen Flow Rate 0 02/05/20 16:44 Pain Level 02/05/20 16:49
== END 2020-02-05 17:30 | disposition home or self-care (01) ==
PROVIDERS: Emergency Provider Physician Assistant; PCP Nurse Practitioner Family
DX: R68.84 Jaw pain (principal); K04.7 Periapical abscess without sinus
CPT/HCPCS: 99283

== ENCOUNTER 2020-02-07 09:14 | Emergency (ER) | payer MEDICAID, SELFPAY ==
--- NOTE | 2020-02-07 09:15 | W.ED.GENAD ---
Discharge Plan Disposition Patient Disposition: HOME Condition: Improving Discharge Details Clinical Impression: Abscess, dental Primary Care Provider: Nicolle Herring ED Provider: Rhina Kohler Home Meds and New Rx's Prescriptions: New clindamycin HCl 300 mg capsule 300 mg PO QID Qty: 7 RF: 0 Continued Vicks DayQuil Cold-Flu Relief 5-10-325 mg capsule 1 cap PO DAILY PRNRF: 0 ibuprofen [IBU] 800 mg tablet 800 mg PO Q8H PRN (Reason: pain) Qty: 30 RF: 0 clindamycin HCl 300 mg capsule 300 mg PO Q8H 10 Days Qty: 30 RF: 0 Discharge Instructions Instructions: Dental Abscess (ED) Additional Instructions: Encourage hydration. Please brush her teeth at least 2 times per day. Please follow-up closely with your dentist. I would like for you to continue with the clindamycin but please increase this to 300 mg 4 times a day for a total of 7 days. I have prescribed you further pills to augment what you already have. If you develop fever/chills, increased swelling, spreading of the pain, headache or the new/worsening symptom please seek care urgently once again Referrals: Nicolle Herring [Primary Care Provider] - Discharge Data Discharge Date/Time-TO BE ENTERED AT DEPARTURE: 02/07/20 10:24 Medical Decision Making Patient is a pleasant 29-year-old female presenting to complaint of right frontal dental pain. She was seen by her dentist last week and was started on amoxicillin. After 4 days of the amoxicillin, her pain had increased and she was seen in the emergency department. She reports over the past 24 hours, she has been on clindamycin 300 mg 3 times daily and is stop the amoxicillin. She reports that yesterday she felt the amoxicillin was improving things but woke this morning to find swelling and increased discomfort. She denies any fevers or chills. States she has some radiation of pain into the lower jaw. No radiation into the sinuses or head. On exam, patient appears nontoxic. She is nuchal rigidity. No lymphadenopathy. She does have a small amount of fluctuant swelling at the buccal side of the #8 tooth. This does correlate with where she is noting some swelling of the upper lip. He knows just I am concerned for potential abscess in this area. Not see any evidence to suggest deeper infection. She appears nontoxic with stable vital signs. Patient I discussed risk/benefits as well as expected procedural steps of drainage. She was understanding and wished to proceed. See procedure note. To perform using standard technique. Area was initially numbed with Hurricaine gel. Subsequently injected 1% lidocaine. This worked well for anesthesia. Multiple areas were then aspirated with an 18-gauge. There was purulent discharge that was expressed. Patient reports feeling improved after drainage. We will continue on the clindamycin. She initially been concerned that the swelling of the lip was secondary to reaction. However, physical exam points more towards small focal abscess causing the upper lip swelling rather than the reaction. She denies any shortness of breath, rash, itching, GI upset. We will continue with the clindamycin. We will increase this to Clinda 4 times daily. She was given return precautions. I also encouraged her to follow-up closely with her dentist. She will call Sunday to schedule appointment. I have her questions and concerns were addressed and she is in agreement this plan. HPI General Mode of arrival: ambulatory. Date/Time Provider Initiated Documentation: 02/07/20 09:15. Limitations to Documentation: no limitations. Information obtained by: patient and RN notes reviewed. History of Present Illness 29 year old F presents to the emergency department with the chief complaint of right frontal dental pain and swelling, described as moderate, with intensity rated at 7. and is localized to the mouth. Patient reports radiation to (into lower jaw). Patient started experiencing this day(s) and it has been constant. No relieving factors improve symptom(s), No exacerbating factors reported . Patient notes denies cough, fever/chills, loss of appetite, nausea/vomiting, rash and shortness of breath. Patient did receive the following treatments prior to arrival, other (on clindamycin) Related Data Home Medications Medication Instructions Recorded Confirmed phenylephrine 5 1 cap PO DAILY PRN cap 11/13/19 02/07/20 mg-dextromethorphan 10 mg-acetaminophen 325 mg capsule ibuprofen [IBU] 800 mg PO Q8H PRN #30 tab 11/19/19 02/07/20 clindamycin HCl 300 mg PO Q8H 10 Days #30 cap 02/05/20 02/07/20 clindamycin HCl 300 mg PO QID #7 cap 02/07/20 Previous Rx's Medication Instructions Recorded ibuprofen [IBU] 800 mg PO Q8H PRN #30 tab 11/19/19 clindamycin HCl 300 mg PO Q8H 10 Days #30 cap 02/05/20 clindamycin HCl 300 mg PO QID #7 cap 02/07/20 Allergies Allergy/AdvReac Type Severity Reaction Status Date / Time phenytoin sodium Allergy Intermediate Hives Verified 02/07/20 09:20 [From Dilantin] phenytoin sodium extended Allergy Intermediate Hives Verified 02/07/20 09:20 [From Dilantin] venom-honey bee Allergy Hives Verified 02/07/20 09:20 General EDEN: 4 Review of Systems Constitutional Constitutional: Reports as per HPI, Denies chills, Denies fatigue, Denies fever(s), Denies headache(s) and Denies poor appetite Eyes Eyes: Denies change in vision and Denies irritation ENT Ears, Nose, Mouth, and Throat: Reports as per HPI, Reports dental pain, Denies dysphagia, Denies dizziness, Denies dry mouth, Denies ear discharge, Denies otalgia, Reports facial pain, Denies headache(s), Denies hoarseness, Denies lip swelling, Denies nasal congestion, Denies odynophagia and Denies sore throat Cardiovascular Cardiovascular: Reports as per HPI and Denies chest pain Respiratory Respiratory: Reports as per HPI and Denies cough Gastrointestinal Gastrointestinal: Reports as per HPI, Denies dysphagia, Denies nausea, Denies odynophagia and Denies vomiting Integumentary/Breasts Skin/Breast: Reports as per HPI, Denies erythema, Denies rash and Denies skin pain Neurologic Neurologic: Reports as per HPI, Denies dizziness and Denies headache(s) Endocrine Endocrine: Denies fatigue Allergic/Immunologic Allergic/Immunologic: Denies lip swelling [facility] Medical History History of epilepsy Pt. states she had this when she was a child, and no longer requires to be seen by Scoliosis Unwanted fertility Surgical History Repair of inguinal hernia age 3 yrs Family History Mother Hypertension Social History (Reviewed 02/07/20 @ 15:50 by GRACIE Hairston Smoking/Tobacco Use Status: Current every day Tobacco Type: cigarettes Quit status: considering quitting Alcohol Intake: current Alcohol Intake frequency: a few times a month Alcohol type: beer Substance use type: does not use Do you feel safe at home: Yes Do you feel safe in your relationship?: Yes Female Reproductive History Menstrual control method: condoms History History 2 Para 1 Hx # Term Pregnancies Multiple births Hx # Pregnancies Ectopic pregnancies AB induced Hx Number of Living Children AB spontaneous Exam Const General: cooperative, healthy appearing, comfortable, no acute distress, well developed and well groomed Nutritional Appearance: average body habitus and well nourished Orientation: alert and awake [facility] Head: normal to inspection, normocephalic and atraumatic Ears: hearing grossly normal bilaterally, external ears normal and TM's normal bilaterally General nose exam: external nose normal and nares normal Face and sinus: normal facial exam, sinuses nontender and face symmetric Mouth: lip abnormal (swelling projecting forward upper central lip), tongue normal, salivary ducts normal, oropharynx normal, moist mucous membranes, No mouth trauma and no muffled voice Teeth and gingiva: abnormal dentition, abnormal gingiva (swelling buccal side #8 gingiva), caries and fair dentition (yellow plaque covering teeth) Throat: posterior oropharynx normal, tonsils normal and uvula midline Eyes General: appearance normal, both eyes and all related structures Neck Neck: normal visual inspection, full ROM, no lymphadenopathy, supple and no anterior neck swelling Resp Effort & Inspection: normal respiratory effort, able to speak in complete sentences and no respiratory distress Auscultation: clear to auscultation bilaterally, no rales, no rhonchi and no wheezes Cardio Rate: regular rate Rhythm: regular rhythm Heart Sounds: S1 normal and S2 normal Skin General skin exam: no rashes or lesions noted Trauma: no lacerations or abrasions Neuro General: patient alert and patient awake Cognition: normal cognition Speech: speech normal Gait: normal gait Psych Appearance: grossly normal and well kempt Mental Status: mental status grossly normal Speech and Movement: speech and movement normal Procedures Abscess I/D Site: Other (dental) Side (if applicable): Right Sedation/analgesia: None Local Anesthetic: Lidocaine 1% Amount of anesthesia used (mL): 1 Technique: Needle Aspiration Amount of fluid expressed (mL): 1 Irrigation: No Packing used?: None Complications: Other (none)
[2020-02-07 09:17] VITALS: BP 116/71; PULSE 86; RESP 18; TEMP 36.8; O2SAT 98
[2020-02-07] MEDS: Benzocaine 20% Gel 30 GM JAR MM (09:44)
== END 2020-02-07 10:24 | disposition home or self-care (01) ==
PROVIDERS: Emergency Provider Physician Assistant; PCP Nurse Practitioner Family
DX: R68.84 Jaw pain (principal); K04.7 Periapical abscess without sinus
CPT/HCPCS: 41800

== ENCOUNTER 2020-05-13 16:07 | Outpatient (REF) | payer MEDICAID, SELFPAY ==
--- NOTE | 2020-05-13 14:30 | PAPFT_PTH ---
PATIENT: Huong Arriaga LOC: [facility] U#:[id number] AGE/SX: 29/F ROOM: RE05/13/[address]: BOBBY Le : 1990 BED: DIS: 05/13/2020 SPEC #: [id number] RECD: 05/13/20 16:27 STATUS: CHERELLE REQ #: [id number] LAUREN: 05/13/20 14:[address]: Yarely Paez DEPT: [facility] Cytology RECD BY: Rebeka Mac ENTERED: 05/13/20 16:27 SP TYPE: PAPFT OTHR DR: Nicolle Herring Tissues: 1 - CX/ENDOCX FOR PAP SMEARS Procedures: PAP THIN PREP/UVM Screening Comments: [id number]
== END 2020-05-13 16:27 ==
LOC: LBN 16:07
PROVIDERS: PCP Nurse Practitioner Family; Visit Provider Nurse Practitioner Family
DX: Z12.4 Encounter for screening for malignant neoplasm of cervix (principal)
CPT/HCPCS: 88142

== ENCOUNTER 2022-02-20 17:11 | Emergency (ER) | payer OTHER, SELFPAY ==
--- NOTE | 2022-02-20 17:15 | DI.RAD_ITS ---
Exam(s) XR HAND RT COMPLETE EXAM: XR HAND RT COMPLETE CLINICAL HISTORY: pain over distal 4/5 metacarpals. TECHNIQUE: 2D digital imaging was performed of the right hand. Three images were obtained. AP, late ral and oblique views were obtained. COMPARISON: No exams were available for comparison FINDINGS: BONES: No acute fracture is present. No bony destructive lesion is seen. JOINTS: No dislocation present. SOFT TISSUE: Normal. IMPRESSION: Unremarkable radiographs of the right hand. DATA REPOSITORY: RADIATION DOSE DELIVERED:
[2022-02-20 17:16] VITALS: BP 132/77; PULSE 87; RESP 16; TEMP 36.8; O2SAT 100
--- NOTE | 2022-02-20 17:21 | ED.GENADUL_ITS ---
Discharge Plan Disposition Patient Disposition: HOME Condition: Good Discharge Details Chief Complaint: Orthopedic Clinical Impression: Contusion of hand Primary Care Provider: Unknown,Unknown ED Provider: Troy Lewis Home Meds and New Rx's Prescriptions: No Action ibuprofen [IBU] 800 mg tablet 800 mg PO Q8H PRN (Reason: pain) Qty: 30 0RF Discharge Instructions Instructions: Contusion in Adults (ED) Additional Instructions: At this time there is no evidence of fracture for your hand. Please take Tylenol and Motrin as needed. It will take a few weeks for the pain and tenderness to resolve. Avoid any significant use of the hand that could exacerbate the pain. If you notice any worsening of your symptoms, or any new symptoms such as vomiting, diarrhea, fever, chills, shortness of breath, chest pain, numbness, weakness, or fainting , please return immediately to the emergency department for reevaluation. Please follow up with your primary care provider as soon as possible for reassessment and reevaluation. As always, it was a pleasure participating in your medical care today. Medical Decision Making This is a pleasant 31-year-old female who has a past surgical history of bilateral salpingectomy, who presents today for evaluation of right hand pain. She is right-hand dominant. Yesterday she was at her training when a metal door was slammed on her hand, and squished/crushed the fourth and fifth knuckle. She has had pain since then with movement. Improved with Tylenol and Motrin. Made worse with movement. She denies numbness or tingling. No other complaints at this time. Physical exam demonstrates bruising and tenderness over the fourth and fifth knuckle. No other rotational deformities. Good neurovascular exam distally. Good strength and movement otherwise. We will get an x-ray to rule out fracture. 60 1 PM X-ray shows no evidence of fracture. Will recommend Tylenol Motrin for home use. Suspect contusion. Virtual radiology sees no evidence of fracture. Patient will be discharged home. Discussed red flags which return. I have extensively reviewed the treatment plan and discharge instructions with the patient. I have addressed all patient concerns at this time. The patient was made aware of what symptoms to monitor for that would warrant a return to the emergency department. Discussed the plan with the patient, they demonstrate verbal understanding and agreement with our assessment and plan at this time. The documentation in this chart was dictated using [employer] dictation software. Please excuse any dictation errors. FINDINGS: Bones/joints: No acute fracture. No dislocation. No focal osseous lesion. Soft tissues: No soft tissue radiopaque foreign body. IMPRESSION: No acute findings. No focal osseous lesion. Thank you for allowing us to participate in the care of your patient. Dictated and Authenticated by: Layton Marx MD 02/20/2022 6:02 PM Eastern Time ([place] & [place]) HPI General Date/Time Provider Initiated Documentation: 02/20/22 17:16 . HPI Narrative: This is a pleasant 31-year-old female who has a past surgical history of bilateral salpingectomy, who presents today for evaluation of right hand pain. She is right-hand dominant. Yesterday she was at her training when a metal door was slammed on her hand, and squished/crushed the fourth and fifth knuckle. She has had pain since then with movement. Improved with Tylenol and Motrin. Made worse with movement. She denies numbness or tingling. No other complaints at this time. Related Data Home Medications Medication Instructions Recorded Confirmed ibuprofen 800 mg tablet (IBU) 800 mg PO Q8H PRN pain #30 tabs 11/19/19 02/20/22 Previous Rx's Medication Instructions Recorded ibuprofen 800 mg tablet (IBU) 800 mg PO Q8H PRN pain #30 tabs 11/19/19 Allergies Allergy/AdvReac Type Severity Reaction Status Date / Time phenytoin sodium Allergy Intermediate Hives Verified 02/20/22 17:21 [From Dilantin] phenytoin sodium extended Allergy Intermediate Hives Verified 02/20/22 17:21 [From Dilantin] venom-honey bee Allergy Hives Verified 02/20/22 17:21 General Stated Complaint: Orthopedic EDEN: 4 Review of Systems All systems reviewed & are unremarkable except as noted in HPI and below PFSH All Active Problems (Updated 02/20/22 @ 18:03 by Troy Lewis DO) Contusion of hand (Acute) Atypical squamous cells of undetermined significance (ASC-US) on cervical Pap smear (Acute 12/26/16) 2018 ASCUS r/o HSIL - Colpo Bx/ECC negative Papanicolaou smear of cervix with positive high risk human papilloma virus (HPV) test (Acute 12/26/16) Medical History History of epilepsy Pt. states she had this when she was a child, and no longer requires to be seen by MD Carvajal Unwanted fertility Surgical History Repair of inguinal hernia age 3 yrs Status post bilateral salpingectomy Family History Mother Hypertension Social History Smoking/Tobacco Use Status: Current every day Tobacco Type: e-cigarettes Quit status: considering quitting Smoking risk assessment performed?: Yes Alcohol Intake: current Alcohol Intake frequency: a few times a month Alcohol type: beer Substance use type: does not use Do you feel safe at home: Yes Do you feel safe in your relationship?: Yes Female Reproductive History Menstrual control method: condoms History History 2 Para 1 Hx # Term Pregnancies Multiple births Hx # Pregnancies Ectopic pregnancies AB induced Hx Number of Living Children AB spontaneous Exam Narrative Exam Narrative: 1.Const: Well-nourished, Well-developed, appearing stated age 2.Eyes: PERRL, no conjunctival injection, and symmetrical lids. 3.ENT: Atraumatic external nose and ears. Moist MM. Neck: Symmetric, trachea midline, No thyromegaly. 4.CVS: +S1/S2, No murmurs or gallops. Peripheral pulses 2+ and equal in all ext remities. Brisk capillary refill in all extremities. 5.RESP: Unlabored respiratory effort. Clear to auscultation bilaterally. No wheezes rales or rhonchi 6.GI: Soft, Nontender/Nondistended, No hepatosplenomegaly. No guarding or rebound. 7.MSK: Normocephalic right hand demonstrates bruising over the fourth and fifth knuckle. Tenderness is also there. No tenderness in the mid or distal ph alanxes of the fourth and fifth digit. No tenderness over the carpals of the hand. 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 Brisk capillary refill is present in all fingers distally, sensation intact including two-point discrimination. Normal movement of all fingers otherwise. 8.Skin: Warm, Dry. No rashes or lesions. 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 Sensation grossly intact, no focal neurologic deficits. 10.Psych: (AAO) x3. Appropriate mood and affect Course Vital Signs Vital signs: Vital Signs Temperature 36.8 C 02/20/22 17:16 Pulse 87 02/20/22 17:16 Respiratory Rate 16 02/20/22 17:16 Blood Pressure 132/77 02/20/22 17:16 Pulse Oximetry 100 02/20/22 17:16 Temperature 36.8 C 02/20/22 17:16 Temperature Source Oral 02/20/22 17:16 Pulse 87 02/20/22 17:16 Respiratory Rate 16 02/20/22 17:16 Blood Pressure 132/77 02/20/22 17:16 Blood Pressure Position Sitting 02/20/22 17:16 Pulse Oximetry 100 02/20/22 17:16 Oxygen Delivery Method Room Air 02/20/22 17:16 Oxygen Flow Rate 0 02/20/22 17:16 Pain Level 0 02/20/22 17:16
--- NOTE | 2022-02-20 18:03 | DI.VRAD_ITS ---
PROCEDURE INFORMATION: Exam: XR Right Hand Exam date and time: 02/20/2022 5:33 PM Age: 31 years old Clinical indication: Right hand pain over distal right 4/5 metacarpals TECHNIQUE: Imaging protocol: Radiologic exam of the Right hand. Views: 3 or more views. COMPARISON: No relevant prior studies available. FINDINGS: Bones/joints: No acute fracture. No dislocation. No focal osseous lesion. Soft tissues: No soft tissue radiopaque foreign body. IMPRESSION: No acute findings. No focal osseous lesion. Dictated and Authenticated by: Layton Marx MD. Ordering:BARRON Simmons MD
== END 2022-02-20 18:13 | disposition home or self-care (01) ==
PROVIDERS: Emergency Provider Student in an Organized Health Care Education/Training Program
DX: S60.221A Contusion of right hand, initial encounter (principal); W23.0XXA Caught, crushed, jammed, or pinched between moving objects, initial encounter
CPT/HCPCS: 99283; 73130

== ENCOUNTER 2022-06-01 18:26 | Emergency (ER) | payer MEDICAID, SELFPAY ==
[2022-06-01 18:42] VITALS: BP 107/55; PULSE 82; RESP 15; TEMP 37.2; O2SAT 99
--- NOTE | 2022-06-01 19:12 | ED.GENADUL_ITS ---
Discharge Plan Disposition Patient Disposition: Home Discharge Details Clinical Impression: Pain, dental ED Provider: Rebeka Segura Home Meds and New Rx's Prescriptions: New ibuprofen 600 mg tablet 600 mg PO Q6H PRNQty: 14 0RF penicillin V potassium 500 mg tablet 500 mg PO QID Qty: 28 0RF Continued ibuprofen [IBU] 800 mg tablet 800 mg PO Q8H PRN (Reason: pain) Qty: 30 0RF Discharge Instructions Instructions: Toothache (ED) Additional Instructions: Take antibiotics as prescribed Yogurt daily while on antibiotic Take ibuprofen as needed for discomfort Return earlier should you have fever, chills, or any new or worsening complaints Follow-up with dentist at your scheduled appointment Discharge Data Discharge Date/Time-TO BE ENTERED AT DEPARTURE: 06/01/22 19:26 Medical Decision Making This 31-year-old female presents with report of dental pain Patient appears well, placed on antibiotics Ibuprofen and Tylenol recommended Return precautions reviewed and patient expressed understanding Dental return precautions supplied No evidence of Sameer's angina Medical Records Medical records reviewed: Yes I reviewed the patient's medical records. Lab Data Lab results reviewed: Yes I reviewed the patient's lab results. HPI General Date/Time Provider Initiated Documentation: 06/01/22 19:03 . HPI Narrative: This 31-year-old female presents with report of pain to her left upper tooth that started yesterday morning. She states she has a fracture to this area. She denies any known trauma. She denies chance of or difficulty swallowing. She denies any fever or chills. Related Data Home Medications Medication Instructions Recorded Confirmed ibuprofen 800 mg tablet (IBU) 800 mg PO Q8H PRN pain #30 tabs 11/19/19 06/01/22 ibuprofen 600 mg tablet 600 mg PO Q6H PRN #14 tabs 06/01/22 penicillin V potassium 500 mg 500 mg PO QID #28 tabs 06/01/22 tablet Previous Rx's Medication Instructions Recorded ibuprofen 800 mg tablet (IBU) 800 mg PO Q8H PRN pain #30 tabs 11/19/19 ibuprofen 600 mg tablet 600 mg PO Q6H PRN #14 tabs 06/01/22 penicillin V potassium 500 mg 500 mg PO QID #28 tabs 06/01/22 tablet Allergies Allergy/AdvReac Type Severity Reaction Status Date / Time phenytoin sodium Allergy Intermediate Hives Verified 06/01/22 18:45 [From Dilantin] phenytoin sodium extended Allergy Intermediate Hives Verified 06/01/22 18:45 [From Dilantin] venom-honey bee Allergy Hives Verified 06/01/22 18:45 General Stated Complaint: DentalOral EDEN: 4 PFSH All Active Problems (Updated 06/01/22 @ 19:18 by CHRISTIANO Elise) Pain, dental (Acute) Atypical squamous cells of undetermined significance (ASC-US) on cervical Pap smear (Acute 12/26/16) 2018 ASCUS r/o HSIL - Colpo Bx/ECC negative Papanicolaou smear of cervix with positive high risk human papilloma virus (HPV) test (Acute 12/26/16) Medical History History of epilepsy Pt. states she had this when she was a child, and no longer requires to be seen by MD Carvajal Unwanted fertility Surgical History Repair of inguinal hernia age 3 yrs Status post bilateral salpingectomy Family History Mother Hypertension Social History Smoking/Tobacco Use Status: Current every day Tobacco Type: e-cigarettes Quit status: considering quitting Smoking risk assessment performed?: Yes Alcohol Intake: current Alcohol Intake frequency: a few times a month Alcohol type: beer Substance use type: does not use Do you feel safe at home: Yes Do you feel safe in your relationship?: Yes Female Reproductive History Menstrual control method: condoms History History 2 Para 1 Hx # Term Pregnancies Multiple births Hx # Pregnancies Ectopic pregnancies AB induced Hx Number of Living Children AB spontaneous Exam [facility] Throat image: 1. Other: Uvula midline, no soft palate induration, no trismus, fracture noted, no palpable fluctuance or evidence of deep space infection Course Vital Signs Vital signs: Vital Signs Temperature 37.2 C 06/01/22 18:42 Pulse 82 06/01/22 18:42 Respiratory Rate 15 06/01/22 18:42 Blood Pressure 107/55 L 06/01/22 18:42 Pulse Oximetry 99 06/01/22 18:42 Temperature 37.2 C 06/01/22 18:42 Temperature Source Tympanic 06/01/22 18:42 Pulse 82 06/01/22 18:42 Respiratory Rate 15 06/01/22 18:42 Respiratory Effort Normal 06/01/22 18:44 Blood Pressure 107/55 L 06/01/22 18:42 Blood Pressure Position Sitting 06/01/22 18:42 Pulse Oximetry 99 06/01/22 18:42 Oxygen Delivery Method Room Air 06/01/22 18:42 Oxygen Flow Rate 0 06/01/22 18:42 Pain Level 2 06/01/22 18:42
[2022-06-01] MEDS: Penicillin V POTASSIUM 500 MG TAB, 4 TABS/BTL PO (19:20)
== END 2022-06-01 19:26 | disposition home or self-care (01) ==
PROVIDERS: Emergency Provider Physician Assistant
DX: K08.89 Other specified disorders of teeth and supporting structures (principal)
CPT/HCPCS: 99283